=== PATIENT | male | born 1970 | race Caucasian/White ===

== ENCOUNTER 2016-11-06 17:32 | Emergency (ER) | payer OTHER ==
--- NOTE | ~2016-11-06 | CR281 ---
[facility]. [facility] A Service of [facility] & [facility] RADIOLOGY TEXT RESULTS PATIENT: RICHARD MACIAS LOCATION: SED : 66 UNIT #: [id number] AGE: [address]: Aniya Wilkins APRN SEX: M ORDER DR: [id number] [place] [id number] E MR#: [id number] Acc #: [id number] NAME: RICHARD MACIAS : 1970 SEX: M STUDY DATE/TIME: 11/06/2016 17:03 UNIT: SED ROOM: STUDY DESCRIPTION: CR Wrist Min 3 View Lt Attending Physician: Aniya Wilkins A.P.R.N. Ordering Physician: Aniya Murdock A.P.R.N. Primary Care Physician: Primary Care Physician No MEDICAL IMAGING REPORT This report is preliminary unless electronic signature is present. EXAM Left wrist, 11/06/2016 HISTORY Wrist pain after falling out of back of truck today. FINDINGS 3 views of the wrist are obtained. There is a small radiopaque metallic foreign body along the dorsal aspect of the distal forearm measuring on the order of about a millimeter in size. It is in the soft tissues. Bony elements are intact. No fractures or foreign bodies are seen. CONCLUSION 1 mm radiopaque metallic foreign body in the dorsum of the distal forearm about 4-5 cm proximal to the wrist. No fractures is identified. Dictated by... Anderson Chou M.D. THIS IS AN ELECTRONICALLY VERIFIED REPORT Anderson Chou M.D. at 11/07/2016 10:35 AM Jack TD: 11/06/2016 22:45 JOB #: [id number] MEDICAL IMAGING REPORT Page 1 of 1
--- NOTE | ~2016-11-06 | CR141 ---
[facility]. [facility] A Service of [facility] & [facility] RADIOLOGY TEXT RESULTS PATIENT: RICHARD MACIAS LOCATION: SED : 66 UNIT #: [id number] AGE: [address]: Aniya Wilkins APRN SEX: M ORDER DR: [id number] [place] [id number] E MR#: [id number] Acc #: [id number] NAME: RICHARD MACIAS : 1970 SEX: M STUDY DATE/TIME: 11/06/2016 17:03 UNIT: SED ROOM: STUDY DESCRIPTION: CR Hand Min 3 Views Lt Attending Physician: Aniya Wilkins A.P.R.N. Ordering Physician: Aniya Murdock A.P.R.N. Primary Care Physician: Primary Care Physician No MEDICAL IMAGING REPORT This report is preliminary unless electronic signature is present. EXAM Left hand, 3 views, HISTORY Left hand swelling and pain after falling out of back of truck today. FINDINGS 3 views of the left hand are submitted. Bony elements appear intact. No fractures or foreign bodies are seen. CONCLUSION Negative. Dictated by... Anderson Chou M.D. THIS IS AN ELECTRONICALLY VERIFIED REPORT Anderson Chou M.D. at 11/07/2016 10:35 AM ETIENNE/juanjo TD: 11/06/2016 22:43 JOB #: [id number] MEDICAL IMAGING REPORT Page 1 of 1
[~2016-11-06 17:32] MED LIST: ASPIRIN81 MG; CLOPIDOGREL75 MG; LIPITOR40 MG
== END 2016-11-06 18:11 | disposition home or self-care (01) ==
LOC: SED 17:32
DX: S63.502A Unspecified sprain of left wrist, initial encounter (principal); F17.210 Nicotine dependence, cigarettes, uncomplicated; Z88.0 Allergy status to penicillin; Z79.82 Long term (current) use of aspirin; X58.XXXA Exposure to other specified factors, initial encounter; Y92.098 Other place in other non-institutional residence as the place of occurrence of the external cause
CPT/HCPCS: 29280; 73110; 73130; 99283